=== PATIENT | male | born 1965 ===

== ENCOUNTER 2024-04-10 06:21 | Day surgery (SDC) | payer BC, SELFPAY ==
[2024-03-21 14:05] VITALS: BMI 30.2
[2024-03-21 14:30] LABS: Hematocrit 39.3 % (39.0-52.0); Hemoglobin 13.9 g/dL (13.0-18.0); Mean Corp Hgb Conc. 35.4 g/dL (33.0-37.0); Mean Corpuscular Hgb 32.8 pg (27.0-31.0); Mean Corpuscular Volume 92.7 fL (80.0-94.0); Mean Platelet Volume 10.1 fL (7.4-10.4); Platelet Count 258 10^3/uL (130-400); Red Blood Cell Count 4.24 10^6/uL (4.70-6.10); Red Cell Dist. Width 12.8 % (11.5-14.5); White Blood Cell Count 6.5 10^3/uL (4.8-10.8)
[2024-03-21 14:42] LABS: ALT (SGPT) 32 U/L (0-50); AST (SGOT) 24 U/L (17-59); Albumin 4.5 g/dl (3.5-5.0); Alkaline Phosphatase 40 U/L (38-126); Blood Urea Nitrogen 14 mg/dl (9-20); Calcium 9.7 mg/dl (8.4-10.2); Carbon Dioxide 25 mmol/L (22-30); Chloride 106 mmol/L (98-107); Estimated Creatinine Clearance 123 ml/min; Glucose 94 mg/dl (70-99); Potassium 4.5 mmol/L (3.5-5.1); Sodium 142 mmol/L (135-145); Total Bilirubin 0.5 mg/dl (0.2-1.3); eGFR > 60.00
[2024-03-22 08:15] LABS: Glycohemoglobin (HgbA1c) 5.4 % (4.0-5.6)
--- NOTE | 2024-03-29 10:53 | VNURNOTE ---
SAME DAY TOTAL JOINT PROGRAM VISITING NURSE AND VISITING PHYSICAL THERAPY CONSULTATION REQUEST:
PATIENT: Frank Garcia
ADDRESS: [address] [place] [address]
INSURANCE: [employer] [id number]
SECONDARY INS: -
PATIENT : 67
PATIENT CONTACT #: HOME / CELL cell [phone]
FAMILY CONTACT: Vera Trinidad - [facility] [place] # [phone]
SURGEON: Dr Wynne
SURGERY PLANNED: Left Total Hip Arthoplasty
DATE OF SURGERY: 04/10/24 Est time of surgery 1500
TOTAL KNEE PROTOCOL: VN AND VISITING PT, ROM, WBAT, CHANGE DRESSING ONLY IF NEEDED
TOTAL HIP PROTOCOL: VN AND VISITING PT, POSTERIOR APPROACH HIP PRECAUTIONS, CHANGE DRESSING ONLY IF NEEDED
CALL [phone] AFTER 1300 DAY BEFORE SURGERY TO FIND OUT SURGERY TIME
--- NOTE | 2024-03-29 12:46 | VNURNOTE ---
[facility] liaison spoke with patient regarding joint protocol. He is a [facility] on 04/10/[address] Wynne. He lives in [place], [place]. Explained that he is out of [facility] network, however, [facility] VN and PT will be set up for him. He confirms he
has a sig other Vera who will assist day of surgery and post op. He confirms he has DME: rolling walker and raised toilet seat and cane.
Rx and demographics sent to Shawn Brennan at [facility]. Confirmed receipt. PT Haydee Scott and Juan Manuel Trimble emailed regarding upcoming [facility] patient.
Plan: Liaison to send H&P when available to [facility]. [facility] joint protocol w/ [facility] on 04/10/24
[2024-04-04 09:19] VITALS: BMI 30.2
[2024-04-10] VITALS (10 sets, daily range): BP systolic 105–143; BP diastolic 61–90; PULSE 83; O2SAT 98; BMI 30.2
[2024-04-10] MEDS: TYLENOL 650 MG PO (07:57)
[2024-04-10] MEDS: CELEBREX 200 MG PO (07:57)
[2024-04-10] MEDS: ROXICODONE 5 MG PO (13:17)
[2024-04-10] MEDS: ANCEF 5 IV (13:38)
[2024-04-10] MEDS: FLOMAX 0.4 MG PO (14:08)
== END 2024-04-10 15:04 | disposition home or self-care (01) ==
LOC: SDS 06:21
PROVIDERS: ATTENDING PHYSICIAN Specialist; FAMILY PHYSICIAN Registered Nurse
DX: M16.12 Unilateral primary osteoarthritis, left hip (principal); E66.9 Obesity, unspecified; Z68.31 Body mass index [BMI] 31.0-31.9, adult
CPT/HCPCS: 27130; 36415; 73502; 80053; 83036; 85027; 87070; 97162; C1713; C1776